=== PATIENT | female | born 1980 | race Hispanic/Latino ===

== ENCOUNTER 2020-03-01 20:16 | Emergency (ER) | payer SELFPAY ==
[2020-03-01] MEDS ORDERED: Lidocaine 1% (PF) 30 ML VIAL ONE (20:36)
[2020-03-01] MEDS ORDERED: Adacel (T-DAP) 0.5 ML SYRINGE ONE (21:20)
[2020-03-01] MEDS ORDERED: Ibuprofen 200 MG TAB ONE (21:23)
== END 2020-03-01 21:31 ==
LOC: ERS 20:16
DX: N61.1 Abscess of the breast and nipple (principal); F31.9 Bipolar disorder, unspecified
CPT/HCPCS: 10061; 87070; 87205; 90471; 90715; J2001